=== PATIENT | female | born 2005 | race Caucasian/White ===

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

== ENCOUNTER 2024-06-21 08:10 | Outpatient (CLI) | payer OTHER, SELFPAY ==
--- NOTE | 2024-06-21 08:15 | CRLHL7_ITS ---
For Patients: As a result of the Century Cures Act, medical imaging exams and procedure reports are released immediately into your electronic medical record. You may view this report before your referring provider. If you have questions, please contact your health care provider. Indication: Left shoulder pain Procedure : Informed consent was obtained. The site was marked. Time-out was performed. The skin of the left shoulder was cleansed with ChloraPrep. A sterile drape was placed. 8 cc of 1 percent lidocaine was administered for superficial anesthesia. Subsequently a 22 gauge spinal needle was introduced into the left shoulder joint under intermittent fluoroscopic guidance. Injection of 2 cc nonionic Omnipaque 240 contrast confirmed intra-articular location. Subsequently 11 cc of dilute gadolinium were injected. The needle was removed and hemostasis achieved with direct pressure. A dressing was placed. The patient tolerated the procedure well without immediate complication and was immediately sent to MRI for imaging. Total fluoroscopy time 0.15 minutes. Impression: Successful fluoroscopically guided left shoulder arthrogram for MRI. Dictated by Joce Meier MD @ 06/21/2024 9:19:20 AM (Electronically Signed)
--- NOTE | 2024-06-21 09:15 | CRLHL7_ITS ---
For Patients: As a result of the 21st Century Cures Act, medical imaging exams and procedure reports are released immediately into your electronic medical record. You may view this report before your referring provider. If you have questions, please contact your health care provider. CLINICAL INDICATION: Chronic left shoulder pain. COMPARISON IMAGING STUDIES: Radiographs from 12/04/2019. TECHNICAL: MR arthrogram left shoulder with contrast. Axial, sagittal oblique and coronal oblique T1 FS, PD FS and [id number] images. 15 milliliters of dilute gadolinium solution injected intra-articular body on-site radiology provider. 1.5 Leigh Ann MR scanner. FINDINGS: Coronal oblique PD fat-sat images are limited by motion artifact. GLENOHUMERAL JOINT: Humeral Head Articular Cartilage: Humeral head articular cartilage is maintained. There is no Hill-Sachs lesion. Glenoid Articular Cartilage: Glenoid articular cartilage is maintained. Loose Bodies: None seen. Glenoid Labrum, Glenohumeral Ligaments and Capsule: The anterior inferior labrum is intact without Bankart or Bankart variant labral tear. Posterior-inferior labrum is intact. Posteriorly, there is a cleft or groove like finding at the chondral labral junction as noted on axial PD fat-sat image number 13 of series 4. This demonstrates a smooth appearance. No detachment of the peripheral labral base. Labrum demonstrates a preserved morphology otherwise in that location.The superior labrum is intact. Glenohumeral ligaments are intact. No glenoid joint capsular edema. Alignment: Maintained. OSSEOUS STRUCTURES: No fracture, marrow edema or marrow replacement process. CORACOACROMIAL ARCH: Acromial Morphology: Type 2 acromial morphology. No excessive lateral or anterior downward sloping of the acromion. No os acromiale. No significant subacromial spur. Lateral acromial thickness is 6 mm. Acromiohumeral Interval: At its narrowest, the interval measures 6 mm. Coracohumeral Interval: At its narrowest, the coracohumeral interval measures 9 mm. Coracoid index is 8 mm. ACROMIOCLAVICULAR JOINT REGION: No AC joint widening or malalignment. Coracoclavicular ligament intact. BURSAE: No bursal fluid collection. ROTATOR CUFF TENDONS AND MUSCLES AND DELTOID: Supraspinatus and Infraspinatus: No tendinosis, tendon tearing, muscle atrophy or muscle edema. Teres Minor: No tendinosis, tendon tearing, muscle atrophy or muscle edema. Subscapularis: No tendinosis, tendon tearing, muscle atrophy or muscle edema. Deltoid: No muscle atrophy. BICEPS TENDON, LONG HEAD: The long head of the biceps tendon is appropriately positioned within the bicipital groove without tendon subluxation or dislocation. There is no significant tendinosis or tendon tearing. OTHER FINDINGS: There is no abnormality within the suprascapular or spinoglenoid notches nor within the quadrilateral space. No axillary adenopathy or mass. IMPRESSION: 1. Examination is mildly limited by motion artifact (specifically the coronal oblique PD fat-sat images). 2. Rotator cuff tendons are intact. 3. Superior labrum, biceps anchor and long head of biceps tendon are intact. 4. Anterior-inferior labrum intact without Bankart or Bankart variant labral tear. No Hill-Sachs lesion. 5. Posteriorly, there is a smooth cleft or groove at the junction of the glenoid articular cartilage with the labrum. No detachment of the peripheral labral base and the labrum otherwise demonstrates a normal morphology. Finding is therefore of questionable significance. Dictated by Perfecto Quintero MD @ 06/21/2024 11:05:41 AM (Electronically Signed)
== END 2024-06-21 08:11 | disposition home or self-care (01) ==
LOC: RAD 08:11
PROVIDERS: PCP Family Medicine; Visit Provider Family Medicine
DX: M25.512 Pain in left shoulder (principal); S43.00 Unspecified subluxation and dislocation of shoulder joint; G89.29 Other chronic pain
CPT/HCPCS: 23350; 73222; 77002; A9575

== ENCOUNTER 2024-07-24 09:39 | Outpatient (CLI) | payer OTHER, SELFPAY ==
[2024-07-24 12:19] LABS: Chlamydia DNA Amplified* NOT DETECTED (No Detected); GC DNA Amplified* NOT DETECTED (No Detected)
== END 2024-07-24 09:40 | disposition home or self-care (01) ==
LOC: NFLDREF 09:39
PROVIDERS: PCP Family Medicine; Visit Provider Obstetrics & Gynecology
DX: R10.2 Pelvic and perineal pain (principal)
CPT/HCPCS: 87491; 87591

== ENCOUNTER 2025-01-29 08:50 | Outpatient (CLI) | payer OTHER, SELFPAY | END 2025-01-29 08:51 | disposition home or self-care (01) | LOC: NFLDREF 02-02 16:49 | PROVIDERS: PCP Family Medicine; Referring Provider Family Medicine; Visit Provider Family Medicine | DX: D64.9 Anemia, unspecified (principal); E78.5 Hyperlipidemia, unspecified | CPT/HCPCS: 80053; 80061; 82728; 83540; 83550 ==